=== PATIENT | female | born 1980 | race Two or more races ===

== ENCOUNTER 2018-05-12 17:35 | Emergency (ER) | payer MEDICAID ==
[~2018-05-12] VITALS: Ht 167.6 cm; Wt 83.9 kg
[~2018-05-12 17:35] MED LIST: IBUPROFEN600 MG PO; KEFLEX500 MG ORAL; NKM
--- NOTE | 2018-05-12 17:46 | NUR ---
ED Nurse Note: Pt from home came in due to pain on her sinus, productive coughing and generalized weakness. Pt also states she was coughing blood in small amount yesterday. Denies chest pain. Pt is AAO x4, ambulatory with non labored breathing. Noted sluggishness and intermittent coughing.
[2018-05-12 18:00] VITALS: BP 122/86
[2018-05-12] MEDS ORDERED: Ketorolac 30mg Inj IV ONE (18:00)
[2018-05-12] MEDS ORDERED: Oxymetazoline 0.05% Na Spray 30ml NASAL ONE (18:00)
[2018-05-12] MEDS ORDERED: Azithromycin 500 MG in NS 275 ML IV ONE (18:00)
--- NOTE | 2018-05-12 18:06 | Emergency Room Report ---
History of Present Illness General Chief Complaint: General Complaint Source: Patient Present Illness HPI Patient presents with 3 days of increased pain underneath her eyes, discharge her nose and occasionally coughing up blood. She also feels dehydrated and has been taking in fluids. She took some Sudafed without help. She complains of pressure underneath her eyes, slight sore throat. She denies any shortness of breath or wheezes. She felt nauseated but hasn't vomited. Pain is rated 8/10, pressure, below her eyes. Nonradiating. Constant Her last period was April 12 she doesn't believe she is at this time. No chest pain, palpitations, diarrhea, dysuria, abdominal pain, shortness of breath, depression, visual changes. No rashes. Allergies: Coded Allergies: No Known Allergies (Unverified , 12/17/11) Patient History Past Medical History: see triage record Social History: Denies: smoking Last Menstrual Period: 04/17/2018 Now: No Reviewed Nursing Documentation: PMH: Agreed; PSxH: Agreed Nursing Documentation-PMH Past Medical History: No Stated History Review of Systems All Other Systems: negative except mentioned in HPI Physical Exam Vital Signs Date Time Temp Pulse Resp B/P (MAP) Pulse Ox O2 Delivery O2 Flow Rate FiO2 05/12/18 17:36 98.8 64 20 112/70 96 Room Air Sp02 EP Interpretation: reviewed, normal General Appearance: well appearing, no apparent distress, GCS 15 Head: normocephalic Eyes: bilateral eye normal inspection, bilateral eye PERRL, bilateral eye EOMI ENT: normal voice, moist mucus membranes - dry lips, pharyngeal erythema - minimal, bilat nares swollen and sl d/c Neck: supple, no meningismus Respiratory: chest non-tender, lungs clear, normal breath sounds Cardiovascular #1: regular rate, rhythm Cardiovascular #2: 2+ radial (R) Gastrointestinal: normal inspection, normal bowel sounds, non tender, no mass, non-distended Musculoskeletal: back normal, gait/station normal, normal range of motion Neurologic: alert, oriented x3, grossly normal Psychiatric: mood/affect normal Skin: normal inspection, warm/dry Medical Decision Making Diagnostic Impression: Primary Impression: Acute bacterial sinusitis Additional Impression: Dehydration ER Course Patient presents with bilateral facial pain, fevers, sore throats and bloody productive phlegm. Differential includes acute sinusitis, hemoptysis, pharyngitis amongst others. The patient has signs of dehydration and diabetes needs to be excluded. Evaluation with labs. The patient will be treated with IV hydration, Afrin, azithromycin and a dose of Toradol. Antibiotics are indicated because of the purulent nature of the discharge and because of subjective fevers. Labs with normal white count and CMP. Urinalysis clear. Patient improved with treatment. Able to touch my area without discomfort. Discussed findings and treatment plan. Patient stable for outpatient observation and treatment. Laboratory Tests Test 05/12/18 17:50 05/12/18 18:10 Urine Color Yellow Urine Appearance Clear Urine pH 6.5 (4.5-8.0) Urine Specific [place] 1.015 (1.005-1.035) Urine Protein Negative (NEGATIVE) Urine Glucose (UA) Negative (NEGATIVE) Urine Ketones Negative (NEGATIVE) Urine Blood Negative (NEGATIVE) Urine Nitrite Negative (NEGATIVE) Urine Bilirubin Negative (NEGATIVE) Urine Urobilinogen 1 MG/DL (0.0-1.0) H Urine Leukocyte Esterase 1+ (NEGATIVE) H Urine RBC 0-2 /HPF (0 - 2) Urine WBC 0-2 /HPF (0 - 2) Urine Squamous Epithelial Cells Few /LPF (NONE/OCC) Urine Bacteria Few /HPF (NONE) Urine HCG, Qualitative Negative (NEGATIVE) White Blood Count 8.6 K/UL (4.8-10.8) Red Blood Count 4.35 M/UL (4.20-5.40) Hemoglobin 12.9 G/DL (12.0-16.0) Hematocrit 39.9 % (37.0-47.0) Mean Corpuscular Volume 92 FL (80-99) Mean Corpuscular Hemoglobin 29.8 PG (27.0-31.0) Mean Corpuscular Hemoglobin Concent 32.5 G/DL (32.0-36.0) Red Cell Distribution Width 13.1 % (11.6-14.8) Platelet Count 241 K/UL (150-450) Mean Platelet Volume 6.2 FL (6.5-10.1) L Neutrophils (%) (Auto) 59.6 % (45.0-75.0) Lymphocytes (%) (Auto) 28.5 % (20.0-45.0) Monocytes (%) (Auto) 9.1 % (1.0-10.0) Eosinophils (%) (Auto) 1.7 % (0.0-3.0) Basophils (%) (Auto) 1.1 % (0.0-2.0) Sodium Level 139 MMOL/L (136-145) Potassium Level 3.9 MMOL/L (3.5-5.1) Chloride Level 104 MMOL/L (98-107) Carbon Dioxide Level 27 MMOL/L (21-32) Anion Gap 8 mmol/L (5-15) Blood Urea Nitrogen 12 mg/dL (7-18) Creatinine 1.0 MG/DL (0.55-1.30) Estimate Glomerular Filtration Rate > 60 mL/min (>60) Glucose Level 101 MG/DL (74-106) Calcium Level 9.0 MG/DL (8.5-10.1) Total Bilirubin 0.1 MG/DL (0.2-1.0) L Aspartate Amino Transferase (AST) 18 U/L (15-37) Alanine Aminotransferase (ALT) 26 U/L (12-78) Alkaline Phosphatase 55 U/L (46-116) Total Protein 7.1 G/DL (6.4-8.2) Albumin 3.6 G/DL (3.4-5.0) Globulin 3.5 g/dL Albumin/Globulin Ratio 1.0 (1.0-2.7) Laboratory Tests Test 05/12/18 17:50 05/12/18 18:10 Urine Color Yellow Urine Appearance Clear Urine pH 6.5 (4.5-8.0) Urine Specific [place] 1.015 (1.005-1.035) Urine Protein Negative (NEGATIVE) Urine Glucose (UA) Negative (NEGATIVE) Urine Ketones Negative (NEGATIVE) Urine Blood Negative (NEGATIVE) Urine Nitrite Negative (NEGATIVE) Urine Bilirubin Negative (NEGATIVE) Urine Urobilinogen 1 MG/DL (0.0-1.0) H Urine Leukocyte Esterase 1+ (NEGATIVE) H Urine RBC 0-2 /HPF (0 - 2) Urine WBC 0-2 /HPF (0 - 2) Urine Squamous Epithelial Cells Few /LPF (NONE/OCC) Urine Bacteria Few /HPF (NONE) Urine HCG, Qualitative Negative (NEGATIVE) White Blood Count 8.6 K/UL (4.8-10.8) Red Blood Count 4.35 M/UL (4.20-5.40) Hemoglobin 12.9 G/DL (12.0-16.0) Hematocrit 39.9 % (37.0-47.0) Mean Corpuscular Volume 92 FL (80-99) Mean Corpuscular Hemoglobin 29.8 PG (27.0-31.0) Mean Corpuscular Hemoglobin Concent 32.5 G/DL (32.0-36.0) Red Cell Distribution Width 13.1 % (11.6-14.8) Platelet Count 241 K/UL (150-450) Mean Platelet Volume 6.2 FL (6.5-10.1) L Neutrophils (%) (Auto) 59.6 % (45.0-75.0) Lymphocytes (%) (Auto) 28.5 % (20.0-45.0) Monocytes (%) (Auto) 9.1 % (1.0-10.0) Eosinophils (%) (Auto) 1.7 % (0.0-3.0) Basophils (%) (Auto) 1.1 % (0.0-2.0) Sodium Level 139 MMOL/L (136-145) Potassium Level 3.9 MMOL/L (3.5-5.1) Chloride Level 104 MMOL/L (98-107) Carbon Dioxide Level 27 MMOL/L (21-32) Anion Gap 8 mmol/L (5-15) Blood Urea Nitrogen 12 mg/dL (7-18) Creatinine 1.0 MG/DL (0.55-1.30) Estimate Glomerular Filtration Rate > 60 mL/min (>60) Glucose Level 101 MG/DL (74-106) Calcium Level 9.0 MG/DL (8.5-10.1) Total Bilirubin 0.1 MG/DL (0.2-1.0) L Aspartate Amino Transferase (AST) 18 U/L (15-37) Alanine Aminotransferase (ALT) 26 U/L (12-78) Alkaline Phosphatase 55 U/L (46-116) Total Protein 7.1 G/DL (6.4-8.2) Albumin 3.6 G/DL (3.4-5.0) Globulin 3.5 g/dL Albumin/Globulin Ratio 1.0 (1.0-2.7) Status: improved Disposition: HOME, SELF-CARE Condition: Improved Scripts Ibuprofen* (MOTRIN*) 600 Mg Tablet 600 MG ORAL Q6H PRN for For Pain, #16 TAB Prov: Carlyle Goodman MD 05/12/18 Chlorpheniramine Maleate (CHLOR-TRIMETON) 4 Mg Tablet 4 MG PO Q4HR PRN for congestion, #10 TAB Prov: Carlyle Goodman MD 05/12/18 Azithromycin* (ZITHROMAX*) 250 Mg Tablet 250 MG ORAL DAILY, #4 TAB Prov: Carlyle Goodman MD 05/12/18 Carlyle Goodman MD May 12, 2018 18:06
[2018-05-12 18:15] LABS: APPEARANCE,URINE CLEAR; BILIRUBIN, URINE NEGATIVE (NEGATIVE); GLUCOSE, URINE (UA) NEGATIVE (NEGATIVE); KETONES,URINE NEGATIVE (NEGATIVE); LEUKOCYTE ESTERASE ,URINE 1+ (NEGATIVE); NITRITE,URINE NEGATIVE (NEGATIVE); PH,URINE 6.5 (4.5-8.0); PROTEIN,URINE NEGATIVE (NEGATIVE); UROBILINOGEN,URINE 1 MG/DL (0.0-1.0)
--- NOTE | 2018-05-12 18:18 | NUR ---
ED Nurse Note: Blood and urine sent.
[2018-05-12 18:27] LABS: COLOR,URINE YELLOW
[2018-05-12 18:29] LABS: BASOPHILS % (AUTO) 1.1 % (0.0-2.0); EOSINOPHILS % (AUTO) 1.7 % (0.0-3.0); HEMATOCRIT 39.9 % (37.0-47.0); HEMOGLOBIN 12.9 G/DL (12.0-16.0); LYMPHOCYTES % (AUTO) 28.5 % (20.0-45.0); MEAN CORPUSCULAR VOLUME 92 FL (80-99); MONOCYTES % (AUTO) 9.1 % (1.0-10.0); NEUTROPHILS % (AUTO) 59.6 % (45.0-75.0); PLATELET COUNT 241 K/UL (150-450); RED BLOOD COUNT 4.35 M/UL (4.20-5.40); RED CELL DISTRIBUTION WIDTH 13.1 % (11.6-14.8); WHITE BLOOD COUNT 8.6 K/UL (4.8-10.8)
[2018-05-12 18:45] LABS: ANION GAP 8 mmol/L (5-15); BLOOD UREA NITROGEN 12 mg/dL (7-18); CARBON DIOXIDE 27 MMOL/L (21-32); CHLORIDE 104 MMOL/L (98-107); POTASSIUM 3.9 MMOL/L (3.5-5.1); SODIUM 139 MMOL/L (136-145)
[2018-05-12 18:50] LABS: ALANINE AMINOTRANSFERASE 26 U/L (12-78); ALBUMIN 3.6 G/DL (3.4-5.0); ALKALINE PHOSPHATASE 55 U/L (46-116); ASPARTATE AMINO TRANSFERASE 18 U/L (15-37); BILIRUBIN,TOTAL 0.1 MG/DL (0.2-1.0)
--- NOTE | 2018-05-12 19:10 | NUR ---
HAND-OFF: Report given to Laine HALL.
[2018-05-12] MEDS ORDERED: CHLOR-TRIMETON4 MG PO (20:48)
[2018-05-12] MEDS ORDERED: ZITHROMAX250 MG ORAL (20:48)
[2018-05-12] MEDS ORDERED: IBUPROFEN600 MG ORAL (20:48)
[2018-05-12 21:05] VITALS: BP 126/84
--- NOTE | 2018-05-12 21:05 | NUR ---
ED Nurse: Pt seen, treated, medically cleared by ER MD for discharge. Discharge instructions and prescription given with repeat verbalization by pt. Instructed pt to follow up with primary care physican within one week. ID band/IV removed, site clean and bandaged. Pt is AAO x4, VSS, no signs of distress, ambulatory and left with all belongings.
== END 2018-05-12 21:05 | disposition home or self-care (01) ==
LOC: EMR 18:15
DX: J01.90 Acute sinusitis, unspecified (principal); B96.89 Other specified bacterial agents as the cause of diseases classified elsewhere; E86.0 Dehydration
CPT/HCPCS: 36415; 80053; 81003; 81025; 85025; 96361; 96365; 96375; 99284; J0456; J1885; J7050